=== PATIENT | male | born 1955 | race Caucasian/White ===

== ENCOUNTER 2018-11-09 17:25 | Emergency (ER) | payer BC ==
--- OUTSIDE RECORDS SUMMARY | 2018-11-09 17:29 | XMS REPORT | Clinical Summary ---
:1955 Author Organization [facility] Address [address] [place] [address] Care Team Providers Name Role Phone Asked, No Pcp Primary Care Provider Unavailable Allergies No Known Allergies Medications Medication Sig Dispensed Refills Start Date End Date Status meloxicam (MOBIC) 15 mg Take 15 mg by 0 Active tablet mouth daily. lisinopril Take 30 mg by 0 Active (PRINIVIL,ZESTRIL) 20 mouth daily. mg tablet carvedilol (COREG) 25 Take 25 mg by 0 Active MG tablet mouth daily. Active Problems Not on file Encounters Date Type Specialty Care Team Description 11/08/2018 Office Visit Orthopedic Surgery Jay Hdz, Left knee pain, PA-C unspecified chronicity (Primary Dx) after 11/08/2017 Family History Medical History Relation Name Comments Heart attack Father No Known Problems Mother Relation Name Status Comments Father Alive Mother Alive Social History Tobacco Use Types Packs/Day Years Used Date Never Smoker Smokeless Tobacco: Current User Chew Alcohol Use Drinks/Week oz/Week Comments No Sex Assigned at Date Recorded Not on file Job Start Date Occupation Industry Not on file Not on file Not on file Travel History Travel Start Travel End No recent travel history available. Last Filed Vital Signs Vital Sign Reading Time Taken Blood Pressure - - Pulse - - Temperature - - Respiratory Rate - - Oxygen Saturation - - Inhaled Oxygen Concentration - - Weight 98.4 kg (217 lb) 11/08/2018 8:44 AM CDT Height 177.8 cm (5' 10") 11/08/2018 8:44 AM CDT Body Mass Index 31.14 11/08/2018 8:44 AM CDT Plan of Treatment Health Maintenance Due Date Last Done Comments COLONOSCOPY SCREENING 2004 SHINGLES VACCINES (#1) 2004 INFLUENZA VACCINE 11/09/2018 02/24/2016, 12/27/2014 Implants Implanted Type Area Office Asst Device Shelf Model / Identifier Expiration Serial / Date Papa Cardenas Crtd - [id number] Cardiac N/A: N/A [employer] CRM [id number] / Implanted: Qty: 1 on 09/02/2017 by Abbie Perez Jr., MD [employer] / Generators Procedures Procedure Name Priority Date/Time Associated Diagnosis Comments XR KNEE 3 VW LEFT Routine 11/08/2018 8:51 AM Left knee pain, Results for this CDT unspecified procedure are in chronicity the results section. after 11/08/2017 Results XR Knee 3 Vw Left (11/08/2018 8:51 AM CDT) Specimen Narrative Performed At Well fixed and maintained Bilateral TKR [facility] Performing Organization Address City[facility]State[facility] Phone Number [facility] [address] [place] [address] after 11/08/2017 Insurance Payer Benefit Plan / Subscriber ID Effective Dates Phone Address Type Group BCBS BCBS CHOICE xxxxxxxxxxxx 2004-Present PPO PPO/F[employer]ERAL EMPL PPO MEDICARE MEDICARE PART A xxxxxxxxxxx 2016-Present [place], [place] Medicare AND B Guarantor Name Account Type Relation to Date of Phone Billing Patient Address Dimitrios Hays Personal/Family Self 1955 [id number] (Home) [place] [address] Advance Directives Patient has advance care planning documents on file. For more information, please contact:Zeeshan Gonzales[address] [place] [address]
--- NOTE | 2018-11-09 18:30 | ER ---
Nurse's Notes [facility] Name: Dimitrios Hays Age: 63 yrs Sex: Male : 1955 Arrival Date: 11/09/2018 Time: 17:26 Bed 28 Private MD: Diagnosis: Effusion, left knee Presentation: 11/09 17:35 Presenting complaint: Patient states: "I was just driving and my left knee started aa5 swelling up". Pt states "I was just at my orthopedic doctor checking my knee because I fell a few months ago and have been having pain but they did x-rays and said everything was fine". Transition of care: patient was not received from another setting of care. Onset of symptoms was November 09, 2018. Risk Assessment: Do you want to hurt yourself or someone else? Patient reports no desire to harm self or others. Initial Sepsis Screen: Does the patient meet any 2 criteria? No. Patient's initial sepsis screen is negative. Does the patient have a suspected source of infection? No. Patient's initial sepsis screen is negative. Care prior to arrival: None. 17:35 Acuity: RUDOLPH 4 aa5 17:35 Method Of Arrival: Wheelchair aa5 Historical: - Allergies: 17:37 No Known Allergies; aa5 - PMHx: 17:39 Hypertension; Myocardial infarction; aa5 - PSHx: 17:39 Pacemaker/Defibrillator; CABG; Cholecystectomy; ninoska knee replacement; aa5 - Immunization history:: Adult Immunizations unknown. - Social history:: Smoking status: Patient uses tobacco products, smokes one-half pack cigarettes per day. - Ebola Screening: : No symptoms or risks identified at this time. Screenin:27 Abuse screen: Denies threats or abuse. Denies injuries from another. Nutritional mg2 screening: No deficits noted. Tuberculosis screening: No symptoms or risk factors identified. Fall Risk Gait- Weak (10 pts.). Assessment: 18:26 General: Appears in no apparent distress. comfortable, Behavior is calm, cooperative. mg2 Pain: Complains of pain in left knee Pain does not radiate. Pain currently is 5 out of 10 on a pain scale. Quality of pain is described as aching, Pain began gradually, 30 min ago. Is intermittent. Neuro: Level of Consciousness is awake, alert, obeys commands, Oriented to person, place, time, situation. Cardiovascular: Capillary refill < 3 seconds Patient's skin is warm and dry. Respiratory: Airway is patent Respiratory effort is even, unlabored, Respiratory pattern is regular, symmetrical. GI: No signs and/or symptoms were reported involving the gastrointestinal system. : No signs and/or symptoms were reported regarding the genitourinary system. EENT: No signs and/or symptoms were reported regarding the EENT system. Derm: Skin is intact, is healthy with good turgor, Skin is pink, warm \\T\\ dry. normal. Musculoskeletal: Circulation, motion, and sensation intact. Capillary refill < 3 seconds. Vital Signs: 17:39 BP 159 / 69; Pulse 84; Resp 18 S; Temp 98.2(O); Pulse Ox 100% on R/A; Weight 98.43 kg aa5 (R); Height 5 ft. 10 in. (177.80 cm) (R); Pain 4/10; 17:39 Body Mass Index 31.14 (98.43 kg, 177.80 cm) aa5 ED Course: 17:26 Patient arrived in ED. as 17:35 Arm band placed on. aa5 17:37 Triage completed. aa5 17:53 Ramírez Dyer MD is Attending Physician. kdr 18:05 Valentino Tuttle, EBONI is Primary Nurse. mg2 18:27 Patient has correct armband on for positive identification. Door closed. Pillow given. mg2 18:27 No provider procedures requiring assistance completed. Patient did not have IV access mg2 during this emergency room visit. Administered Medications: 18:59 Drug: [place] 10 mg-325 mg 1 tabs Route: PO; mg2 18:59 Follow up: Response: No adverse reaction; Medication administered at discharge. mg2 Outcome: 18:29 Discharge ordered by . kdr 19:09 Discharged to home via wheelchair, with family. tw2 19:09 Condition: stable 19:09 Discharge instructions given to patient, family, Instructed on discharge instructions, follow up and referral plans. no drinking with medication, no driving heavy equipment, medication usage, Demonstrated understanding of instructions, follow-up care, medications, Prescriptions given X 1. 19:10 Patient left the ED. tw2 Signatures: Ramírez Dyer MD MD kdr Martinez, Amelia as Calderon, Audri RN RN aa5 Lidia Prather RN RN tw2 Valentino Tuttle, RN RN mg2
--- NOTE | 2018-11-09 18:30 | EDPHYS ---
Physician Documentation [facility] Name: Dimitrios Hays Age: 63 yrs Sex: Male : 1955 Arrival Date: 11/09/2018 Time: 17:26 Bed 28 Private MD: ED Physician Ramírez Dyer HPI: 11/09 18:31 This 63 yrs old Male presents to ER via Wheelchair with complaints of Knee kdr Pain. 18:31 The patient presents with decreased range of motion, pain, that is acute, swelling, kdr tenderness. The complaints affect the left knee. Context: The problem was sustained on a street or driveway, Riding in a car, resulted from an unknown cause, the patient is not able to bear weight, the patient is not able to ambulate, Problem is a result from a previous injury: Yes. Fell two months ago. Onset: The symptoms/episode began/occurred suddenly, just prior to arrival. Modifying factors: The symptoms are alleviated by remaining still, the symptoms are aggravated by movement, weight bearing, bending knee. Associated signs and symptoms: The patient has no apparent associated signs or symptoms. Treatment prior to arrival includes: no previous treatment. Severity of symptoms: At their worst the symptoms were mild, moderate, in the emergency department the symptoms are unchanged. The patient has experienced similar episodes in the past, a few times, but today's symptoms are worse. The patient has been recently seen by a physician: Dr. Falk yesterday. Historical: - Allergies: 17:37 No Known Allergies; aa5 - PMHx: 17:39 Hypertension; Myocardial infarction; aa5 - PSHx: 17:39 Pacemaker/Defibrillator; CABG; Cholecystectomy; ninoska knee replacement; aa5 - Immunization history:: Adult Immunizations unknown. - Social history:: Smoking status: Patient uses tobacco products, smokes one-half pack cigarettes per day. - Ebola Screening: : No symptoms or risks identified at this time. ROS: 18:31 Constitutional: Negative for fever, chills, and weight loss, Eyes: Negative for injury, kdr pain, redness, and discharge. 18:31 MS/extremity: Positive for decreased range of motion, erythema, pain, swelling, tenderness, of the left knee. Exam: 18:31 Constitutional: This is a well developed, well nourished patient who is awake, alert, kdr and in no acute distress. 18:31 Musculoskeletal/extremity: Extremities: grossly normal except: decreased ROM, erythema, pain, swelling, tenderness, Circulation is intact in all extremities. Sensation intact. Compartment Syndrome exam of affected extremity: is normal. no pain, no numbness, no tingling, no sensation deficit, no palor, Weight bearing: is unable to bear weight. Vital Signs: 17:39 BP 159 / 69; Pulse 84; Resp 18 S; Temp 98.2(O); Pulse Ox 100% on R/A; Weight 98.43 kg aa5 (R); Height 5 ft. 10 in. (177.80 cm) (R); Pain 4/10; 17:39 Body Mass Index 31.14 (98.43 kg, 177.80 cm) aa5 MDM: 18:29 Patient medically screened. kdr 18:31 Data reviewed: vital signs, nurses notes. Counseling: I had a detailed discussion with kdr the patient and/or guardian regarding: the historical points, exam findings, and any diagnostic results supporting the discharge/admit diagnosis, the need for outpatient follow up. Physician consultation: Valentino Pathak MD was contacted at 18:35, regarding consult, patient's condition. 11/09 18:31 Order name: Knee Immobilizer; Complete Time: 18:59 kdr Administered Medications: 18:59 Drug: [place] 10 mg-325 mg 1 tabs Route: PO; mg2 18:59 Follow up: Response: No adverse reaction; Medication administered at discharge. mg2 Disposition: 11/09/18 18:29 Discharged to Home. Impression: Effusion, left knee. - Condition is Stable. - Discharge Instructions: Knee Effusion, [id number]. - Prescriptions for Tylenol- Codeine #3 300-30 mg Oral Tablet - take 2 tablets by ORAL route every 6 hours As needed; 16 tablet. - Medication Reconciliation Form, Thank You Letter, Prescription Opioid Use form. - Follow up: Private Physician; When: 2 - 3 days; Reason: Wound Recheck, Recheck today's complaints, Continuance of care, Re-evaluation by your physician. - Problem is new. - Symptoms are unchanged. Signatures: Ramírez Dyer MD MD kdr Violette Guerrero RN RN aa5 Lidia Prather RN RN tw2 Valentino Tuttle RN RN mg2 Corrections: (The following items were deleted from the chart) 19:10 18:29 11/09/2018 18:29 Discharged to Home. Impression: Effusion, left knee. Condition tw2 is Stable. Forms are Medication Reconciliation Form, Thank You Letter, Antibiotic Education, Prescription Opioid Use. Follow up: Private Physician; When: 2 - 3 days; Reason: Wound Recheck, Recheck today's complaints, Continuance of care, Re-evaluation by your physician. Problem is new. Symptoms are unchanged. kdr
[2018-11-09] MEDS ORDERED: HYDROCODONE/APAP 10/325 TAB ONE (18:40)
== END 2018-11-09 19:10 | disposition home or self-care (01) ==
LOC: ER 17:25
DX: M25.462 Effusion, left knee (principal); I10 Essential (primary) hypertension; I25.2 Old myocardial infarction; F17.210 Nicotine dependence, cigarettes, uncomplicated; Z95.1 Presence of aortocoronary bypass graft; Z95.810 Presence of automatic (implantable) cardiac defibrillator
CPT/HCPCS: 99283

== ENCOUNTER 2022-05-11 10:38 | Day surgery (SDC) | payer OTHER ==
[2022-04-26 11:05] LABS: Absolute Lymphocytes (CBC) 1.8 K/uL (0.7-4.9); Lymphocytes % 22.5 % (15.3-44.8); MCV 102.3 fL (80-100); MPV 8.3 fL (7.6-11.3); Protime INR 0.94; RBC Red Blood Cell Count 4.01 M/uL (4.33-5.43)
[2022-04-26 11:18] LABS: Potassium 4.6 mmol/L (3.5-5.1)
--- NOTE | 2022-04-26 11:46 | RAD REPORT ---
EXAM DESCRIPTION: RAD - Chest Pa And Lat (2 Views) - 04/26/2022 10:53 am CLINICAL HISTORY: Pre op pending hydrocelectomy COMPARISON: CHEST PA AND LAT 2 VIEW dated 04/02/2013 FINDINGS: Lines: Pacemaker/ defibrillator. Lungs: No evidence of edema or pneumonia. Pleural: Small left pleural effusion. Cardiac: The heart size is within normal limits. Mediastinum: Within normal limits. Bones: No acute fractures. Other: Sternotomy. IMPRESSION: Small left pleural effusion and possible underlying atelectasis. This is new from 2014 a nd of uncertain etiology.
--- NOTE | 2022-04-26 17:30 | EKG ---
Test Date: 2022-04-26 Test Time: 10:30:15 Washer Cutter: CLAUDIA MEASUREMENT RESULTS: Intervals: Rate: 71 OR: 152 QRSD: 160 QT: 480 QTc: 521 [place]: P: 43 OR: 152 QRS: 215 T: 85 INTERPRETIVE STATEMENTS: Electronic ventricular pacemaker Compared to ECG 10/10/2003 16:31:00 Sinus rhythm no longer present Atrial premature complex(es) no longer present Myocardial infarct finding no longer present T-wave abnormality no longer present Possible ischemia no longer present Electronically Signed On 04-26-22 17:30:23 ENGINEERING SURVEYOR by Tuan Carlos
[2022-05-11] MEDS ORDERED: CEFAZOLIN SODIUM 2 GM/VIAL ONE (11:04)
[2022-05-11] MEDS ORDERED: NA CHLORIDE 0.9% 1,000 ML ONE (11:04)
[2022-05-11] MEDS ORDERED: FENTANYL CITR 100 MCG/2 ML ONE (12:57)
[2022-05-11] MEDS ORDERED: MIDAZOLAM HCL 2 MG/2 ML INJ ONE (12:57)
[2022-05-11] MEDS ORDERED: LIDOCAINE 1% MPF 5 ML VIAL ONE (12:57)
[2022-05-11] MEDS ORDERED: NS 0.9% VIAL 10 ML ONE (12:57)
[2022-05-11] MEDS ORDERED: propofoL 200 MG/20 ML VIAL IV ONE (12:57)
[2022-05-11] MEDS ORDERED: BACITRACIN OINTMENT 14 GM TUBE TOP ONE (13:41)
[2022-05-11] MEDS ORDERED: KETOROLAC 30 MG/ML INJ ONE (14:05)
[2022-05-11] MEDS ORDERED: ONDANSETRON 4 MG/2 ML VIAL ONE (14:05)
[2022-05-11] MEDS ORDERED: BUPIVACAINE 0.25% PF 10 ML VIAL ONE (14:16)
[2022-05-11] MEDS ORDERED: Phenylephrine HCl 10 MG/ML 1 ML VIAL ONE (14:28)
[2022-05-11] MEDS ORDERED: CODEINE 30MG/APAP 300MG TAB PO PRN (15:33)
[2022-05-11 16:30] VITALS: BP 134/65; TEMP 96.9; O2SAT 96
--- NOTE | 2022-05-11 17:34 | P.OP ---
Date of Service: 05/11/22 Preoperative diagnosis: Left hydrocele Postoperative diagnosis: Left hydrocele Lipoma of the cord Suspected left inguinal hernia Indication for procedure: 66-year-old gentleman presented to the urology clinic with left hemiscrotal swelling. While the swelling was only moderate, he did noted to be somewhat bothersome at times. Ultrasound did not identify the presence of any hernia, but it confirmed the presence of a hydrocele. Given the discomfort associated, hydrocelectomy was agreed to. Findings and Operative Technique The patient was consented in the preoperative holding area before being transferred to the operative suite where general anesthesia was induced. He was given Ancef 2 g IV antimicrobial prophylaxis, and pneumoboots were provided for DVT prophylaxis. He was supine on the procedure table, and his genitalia was shaved and prepped with Betadine before being draped in standard fashion. A Cha's line incision was marked approximately 2 to 3 cm in the left hemiscrotum anteriorly, and quarter percent Marcaine was instilled subcutaneously. An incision was made using a 15 blade and deepened through the subcutaneous tissues and dartos layers using electrocautery. The parietal layer of tunica vaginalis was visualized, and it was dissected free from the surrounding dartos layers. The sac was then delivered via the incision, and the remaining dartos layers were removed using blunt dissection and electrocautery. I then incised the parietal layer of the tunica vaginalis in the anterior midline and decompressed it of a modest amount of fluid that was clear yellow beneath. Because the sac was relatively modest in size, after decompressing it and incising it completely to the level of the cord superiorly and to the inferior pole of the testis inferiorly, there was insufficient tissue to wrap behind the testicle in typical [place] fashion. Additionally, there was noted to be significant additional tissue bulging along with the cord structures down to the superior pole of the testis. I then began to dissect those tissues to reveal an underlying lipoma of the cord. I continued to dissect the lipoma off of the cord structures and attempt to deliver it into the inguinal canal and into the internal ring, but this was not successful. However it was removed from the cord structures distally. I then reconstructed the parietal layer of tunica vaginalis by folding it behind the testis and suturing it there using 3-0 Vicryl suture in a running and every third stitch locking fashion. In the end, it was completely hemostatic, and I irrigated the testis and the intrascrotal tissues using saline. I then placed the testis back into the sac and to reapproximated the dartos layers using 3-0 Vicryl suture. The skin and subcutaneous tissues were then reapproximated using 3-0 chromic suture. In the end, the cosmetic result was excellent, and bacitracin was applied to the incision before a fluff gauze and scrotal support was applied. He was then awakened from general anesthesia, transferred to a stretcher, and then transferred to the recovery room in good condition. Complications: None Discharge disposition: Follow-up should be established in the urology clinic in about 6 weeks time. Should he have persistent discomfort despite repair of the hydrocele, anatomic imaging would be recommended to assess for an inguinal hernia, which could be the source of his underlying discomfort.
== END 2022-05-11 16:18 | disposition home or self-care (01) ==
LOC: OR 10:38
PROVIDERS: ATTEND Urology
PROC: 0VB70ZZ Excision of Left Tunica Vaginalis, Open Approach (ICD-10-PCS; principal; 2022-05-11 12:30)
DX: N43.3 Hydrocele, unspecified (principal); D17.6 Benign lipomatous neoplasm of spermatic cord
CPT/HCPCS: 93005; 85025; 80048; 36415; 85610; 82947 ×2; 71046; 55040; J2704; J2001; J2370; J2250; J3010; A4216; J7030; J2405; 88302